=== PATIENT | male | born 1965 | race Hispanic/Latino ===

== ENCOUNTER 2018-01-18 00:57 | Emergency (ER) | payer MEDICAID, OTHER ==
[2018-01-18 00:59] VITALS: BMI 25.8
[2018-01-18 01:19] VITALS: RESP 18; TEMP 98.3
--- NOTE | 2018-01-18 01:31 | C.PDOC ---
History Of Present Illness 52 year old male is brought to the ED by EMS for evaluation of chest pain and alcohol intoxication. Patient was c/o chets pain in the field, once arrived to ED patient reports not feeling chest pain anymore. Patient admits to drinking alcohol tonight and wants a place to stay. Patient denies SI/HI, hallucinations, SOB, weakness, numbness. Time Seen by Provider: 01/18/18 01:30 Chief Complaint (Nursing): Chest Pain History Per: Patient, EMS History/Exam Limitations: intoxication Onset/Duration Of Symptoms: Hrs Current Symptoms Are (Timing): Still Present Suicide/Self Injury Attempted (Context): None Modifying Factor(s): Alcohol Associated Symptoms: denies: Depression, Suicidal Thoughts, Suicidal Plan Recent travel outside of the [place]: No Additional History Per: Patient, EMS Past Medical History Reviewed: Historical Data, Nursing Documentation, Vital Signs Vital Signs: Last Vital Signs Temp 98.3 F 01/18/18 01:14 Pulse 78 01/18/18 01:14 Resp 18 01/18/18 01:14 BP 108/72 01/18/18 01:14 Pulse Ox 98 01/18/18 01:14 - Medical History PMH: Back Problems, Bipolar Disorder, Depression, Emphysema, HTN, Chronic Kidney Disease, Schizophrenia, Seizures Denies: Diabetes, Hepatitis, HIV, Sexually Transmitted Disease Surgical History: No Surg Hx - [facility] Procedures INJECT/INFUSE NEC (01/25/14) PSYCHIA INTERV/EVAL NEC (04/15/13) Family History: States: Unknown Family Hx - Social History Hx Tobacco Use: No Hx Alcohol Use: Yes Hx Substance Use: Yes (UNKNOWN) - Immunization History Hx Tetanus Toxoid Vaccination: No Hx Influenza Vaccination: No Hx Pneumococcal Vaccination: No Review Of Systems Constitutional: Negative for: Fever, Chills Eyes: Negative for: Vision Change Cardiovascular: Positive for: Chest Pain. Negative for: Palpitations Respiratory: Negative for: Shortness of Breath Gastrointestinal: Negative for: Nausea, Vomiting Neurological: Negative for: Weakness, Numbness Psych: Negative for: Depression, Suicidal ideation Physical Exam - Physical Exam Appears: Non-toxic, No Acute Distress Skin: Warm, Dry Head: Normacephalic Eye(s): bilateral: Normal Inspection Neck: Supple Chest: Symmetrical Cardiovascular: Rhythm Regular Respiratory: No Rales, No Rhonchi, No Wheezing Gastrointestinal/Abdominal: Soft, No Tenderness, No Guarding, No Rebound Extremity: Bilateral: Atraumatic, Normal Color And Temperature, Normal ROM Neurological/Psych: Oriented x3, Normal Speech Gait: Steady ED Course And Treatment ECG: Interpreted By Me, Viewed By Me ECG Rhythm: Sinus Rhythm (70), Nonspecific Changes O2 Sat by Pulse Oximetry: 98 (ON RA) Pulse Ox Interpretation: Normal Disposition Counseled Patient/Family Regarding: Studies Performed, Diagnosis, Need For Followup - Disposition Referrals: at [facility] [Outside] Disposition: HOME/ ROUTINE Disposition Time: 01:30 Condition: FAIR Instructions: Alcohol Abuse and Alcoholism (DC) Forms: [employer] (Malay) - Clinical Impression Clinical Impression: Alcoholism, Alcohol abuse with intoxication - Scribe Statement The provider has reviewed the documentation as recorded by the Scribe Maurilio Cole All medical record entries made by the Scribe were at my direction and personally dictated by me. I have reviewed the chart and agree that the record accurately reflects my personal performance of the history, physical exam, medical decision making, and the department course for this patient. I have also personally directed, reviewed, and agree with the discharge instructions and disposition.
[2018-01-18 02:15] VITALS: BP 121/67; PULSE 92; O2SAT 100
--- NOTE | 2018-01-21 19:22 | CARD ---
APPROVED REPORT Date of service: 01/18/2018 EKG Measurement Heart [id number] <Conclusion> Normal sinus rhythm Left axis deviation Abnormal ECG
== END 2018-01-18 02:15 | disposition home or self-care (01) ==
LOC: C.ER 00:57
DX: F10.229 Alcohol dependence with intoxication, unspecified (principal); Y90.9 Presence of alcohol in blood, level not specified